=== PATIENT | male | born 1945 | race Caucasian/White ===

== ENCOUNTER 2020-10-15 14:39 | Inpatient (IN) ==
[2020-10-15 15:35] LABS: Basophils % 0.4 %; Eosinophils % 0.1 %; Hemoglobin 15.3 g/dL (12.9-16.9); Immature Granulocytes % 1.2 % (0-4); Lymphocytes # 1.3 K/mcL (0.6-4.6); Lymphocytes % 11.6 %; Mean Corpuscular HGB Conc 33.3 g/dL (31.6-35.5); Mean Corpuscular Hemoglobin 30.6 pg (28.0-33.3); Monocytes # 0.9 K/mcL (0.0-1.3); Monocytes % 7.7 %; Neutrophils # 8.7 K/mcL (1.6-8.9); Platelet Count 280 K/mcL (140-400)
[2020-10-15 15:39] LABS: INR 1.2; Prothrombin Time 14.1 Seconds (9.4-12.1)
[2020-10-15 15:41] LABS: Activated Partial Thrombo Time 26.6 Seconds (26.0-36.0)
[2020-10-15 15:47] LABS: Bilirubin,Direct 0.4 mg/dL (0.0-0.2); Bilirubin,Indirect 0.5 mg/dL (0.0-1.0); Bilirubin,Total 0.9 mg/dL (0.3-1.0); Calcium 9.4 mg/dL (8.6-10.3); Magnesium 1.8 mg/dL (1.6-2.6); Phosphorous 2.5 mg/dL (2.7-4.5); Potassium 4.6 mEq/L (3.5-5.1); Troponin I 0.03 ng/mL (< 0.04)
[2020-10-15] MEDS ORDERED: 0.9 % Sodium Chloride 1,000 ML IVC ONE (15:50)
[2020-10-15] MEDS ORDERED: Azithromycin 500 MG in 0.9 % Sodium Chloride 250 ML IVPB ONE (15:51)
[2020-10-15] MEDS ORDERED: CefTRIAXone 1,000 MG VIAL IM ONE (15:51)
[2020-10-15 16:14] LABS: Reactive Lymphocytes Present (Not Present); Smudge Cells Present (Not Present)
[2020-10-15 17:07] LABS: Adenovirus Not Detected (Not Detect); Coronavirus 229E Not Detected (Not Detect); Coronavirus HKU1 Not Detected (Not Detect); Coronavirus NL63 Not Detected (Not Detect); Coronavirus OC43 Not Detected (Not Detect)
[2020-10-15 17:08] LABS: Bordetella Pertussis Not Detected (Not Detect); Chlamydophila pneumoniae Not Detected (Not Detect); Human Metapneumovirus Not Detected (Not Detect); Human Rhinovirus/Enterovirus Not Detected (Not Detect); Influenza A Subtype 2009 H1 Not Detected (Not Detect); Influenza B Not Detected (Not Detect); Mycoplasma pneumoniae Not Detected (Not Detect); Parainfluenza Virus 1 Not Detected (Not Detect); Parainfluenza Virus 2 Not Detected (Not Detect); Parainfluenza Virus 3 Not Detected (Not Detect); Parainfluenza Virus 4 Not Detected (Not Detect); Respiratory Syncytial Virus Not Detected (Not Detect); SARS-CoV-2 DETECTED (Not Detect)
[2020-10-15] MEDS ORDERED: *HR* LORazepam 0.5 MG TABLET PO ONE (17:14)
[2020-10-15 17:56] LABS: ABG Base Excess -5 mEq/L (-2 to 3); ABG HCO3 17 mEq/L (21-27); ABG Oxygen Saturation 94 % (95-98); ABG PCO2 26 mmHg (35-45); ABG PH 7.44 pH Units (7.32-7.45); ABG PO2 67 mmHg (85-104); ABG TCO2 18 mEq/L (20-26)
[2020-10-15] MEDS ORDERED: Ondansetron ODT 4 MG TAB.RAPDIS SL PRN (19:29)
[2020-10-15] MEDS ORDERED: Naloxone 0.4 MG/ML INJ IVP PRN (19:29)
[2020-10-15] MEDS ORDERED: D5% in Water 1,000 ML IVC PRN (19:33)
[2020-10-15] MEDS ORDERED: *HR* Dextrose 50 % in Water (Vial) 50 ML VIAL IVP PRN (19:33)
[2020-10-15] MEDS ORDERED: Dextrose Gel 15 GM/37.5 ML TUBE PO PRN ×2 (19:33)
[2020-10-15] MEDS: Insulin LISPRO 300 UNITS/3 ML VIAL SUBQ SCH ×2 (21:26→22:02)
[2020-10-15 23:49] LABS: Bilirubin,Urine Negative (Negative); Blood,Urine Large (Negative); Clarity,Urine Clear (Clear); Color,Urine Yellow (Yellow); Glucose,Urine (UA) Normal (Normal); Ketones,Urine Negative (Negative); Leukocyte Esterase,Urine Negative (Negative); Mucus,Urine Few per lpf (None-Few); Nitrite,Urine Negative (Negative); Protein,Urine 100 mg/dL (Neg-Trace); Specific Gravity,Urine 1.022 (1.010-1.025); Urobilinogen,Urine Normal (Normal); WBC,Urine 0-3 per hpf (0-3)
[2020-10-16] MEDS: Acetaminophen 325 MG TABLET PO PRN ×2 (02:51→11:37)
[2020-10-16] MEDS ORDERED: *HR* Metoprolol 5 MG/5 ML VIAL IVP PRN (04:47)
[2020-10-16 06:05] LABS: Basophils % 0.5 %; Hematocrit 41.4 % (37.5-50.1); Immature Granulocytes % 1.2 % (0-4); Lymphocytes # 0.6 K/mcL (0.6-4.6); Lymphocytes % 7.6 %; Mean Corpuscular HGB Conc 32.9 g/dL (31.6-35.5); Mean Corpuscular Hemoglobin 30.4 pg (28.0-33.3); Mean Corpuscular Volume 92.6 fL (83.0-100.0); Monocytes # 0.3 K/mcL (0.0-1.3); Monocytes % 3.7 %; Platelet Count 234 K/mcL (140-400); Red Blood Count 4.47 M/mcL (4.19-5.50); Red Cell Distribution Width 13.9 % (11.5-14.5); White Blood Count 7.5 K/mcL (4.3-11.1)
[2020-10-16 06:11] LABS: Hemoglobin 13.6 g/dL (12.9-16.9); Neutrophils # 6.5 K/mcL (1.6-8.9)
[2020-10-16 06:12] LABS: INR 1.3; Prothrombin Time 14.7 Seconds (9.4-12.1)
[2020-10-16] MEDS ORDERED: *HR* Heparin 5,000 UNIT/ML VIAL IVP PRN ×2 (06:31)
[2020-10-16] MEDS ORDERED: *HR* Heparin 5,000 UNIT/ML VIAL IVP ONE (06:31)
[2020-10-16 06:37] LABS: Platelet Estimate Normal (Normal); Reactive Lymphocytes Present (Not Present)
[2020-10-16 06:47] LABS: Albumin 3.6 g/dL (3.5-5.7); Albumin/Globulin Ratio 1.1 (1.1-2.2); Bilirubin,Total 0.7 mg/dL (0.3-1.0); Calcium 8.8 mg/dL (8.6-10.3); Globulin 3.4 g/dL (2.4-3.5); Magnesium 1.8 mg/dL (1.6-2.6); Phosphorous 3.5 mg/dL (2.7-4.5); Potassium 4.6 mEq/L (3.5-5.1); Thyroid Stimulating Hormone 0.438 mcIU/mL (0.340-5.600)
[2020-10-16 07:18] LABS: Hemoglobin 14.6 g/dL (12.9-16.9); Mean Corpuscular Hemoglobin 31.3 pg (28.0-33.3); Mean Corpuscular Volume 92.3 fL (83.0-100.0); Mean Platelet Volume 9.8 fL (9.4-12.4); Platelet Count 233 K/mcL (140-400); Red Blood Count 4.66 M/mcL (4.19-5.50); Red Cell Distribution Width 14.1 % (11.5-14.5); White Blood Count 7.1 K/mcL (4.3-11.1)
[2020-10-16 07:30] LABS: Heparin anti-factor XA UFH < 0.04 IU/mL (0.30-0.70)
[2020-10-16 07:31] LABS: INR 1.2; Prothrombin Time 13.9 Seconds (9.4-12.1)
[2020-10-16] MEDS: Insulin LISPRO 300 UNITS/3 ML VIAL SUBQ SCH ×3 (07:58→16:59)
[2020-10-16] MEDS: Heparin 25,000UNIT/250ML 1/2NS 25,000 UNIT/250 ML IV.SOLN IVC SCH (08:04)
[2020-10-16] MEDS: cefTRIAXone 1,000 MG in Water for inj. (sterile) 10 ML IVP SCH (08:10)
[2020-10-16] MEDS: Saline Nasal Spray 44 ML BOTTLE NS SCH ×4 (08:43→20:20)
[2020-10-16] MEDS: Furosemide 40 MG/4 ML VIAL IVP SCH (08:47)
[2020-10-16] MEDS: Artificial Tears SOLN 15 ML BOTTLE BOTH EYES SCH ×2 (08:47→20:19)
[2020-10-16] MEDS: Multivit/Ca/Min/Fe/FA 1 TAB TABLET PO SCH (08:47)
[2020-10-16] MEDS: Chlorhexidine Rinse 15 ML MOUTHWASH MM SCH ×2 (08:47→20:20)
[2020-10-16] MEDS ORDERED: Dexamethasone Sodium Phos/PF 10 MG/ML VIAL IVP ONE (09:00)
[2020-10-16 09:04] LABS: D-Dimer 891 ng/mLFEU (0-500)
[2020-10-16] MEDS: Ipratropium 1 PUFF INHALER IH SCH ×4 (11:43→23:35)
[2020-10-16] MEDS ORDERED: traZODone 50 MG TABLET PO PRN (12:41)
[2020-10-16] MEDS ORDERED: *HR* LORazepam 0.5 MG TABLET PO PRN (12:41)
[2020-10-16] MEDS: Gabapentin 100 MG CAPSULE PO SCH ×2 (14:05→20:19)
[2020-10-16] MEDS ORDERED: Remdesivir 200 MG in 0.9 % Sodium Chloride 100 ML IVPB ONE (15:00)
[2020-10-16] MEDS: Azithromycin 500 MG in 0.9 % Sodium Chloride 250 ML IVPB SCH (16:41)
[2020-10-16] MEDS ORDERED: Vancomycin 2,000 MG/520 ML IV.SOLN IVPB ONE (19:13)
[2020-10-16] MEDS ORDERED: Insulin DETEMIR 100 UNIT/ML X5UNITS SUBQ SCH (21:00)
[2020-10-17 00:33] LABS: Basophils # 0.1 K/mcL (0.0-0.2); Basophils % 0.5 %; Hematocrit 44.3 % (37.5-50.1); Hemoglobin 14.8 g/dL (12.9-16.9); Immature Granulocytes % 1.3 % (0-4); Lymphocytes # 1.2 K/mcL (0.6-4.6); Lymphocytes % 9.2 %; Mean Corpuscular HGB Conc 33.4 g/dL (31.6-35.5); Mean Corpuscular Hemoglobin 30.5 pg (28.0-33.3); Mean Corpuscular Volume 91.3 fL (83.0-100.0); Mean Platelet Volume 10.1 fL (9.4-12.4); Monocytes # 0.7 K/mcL (0.0-1.3); Monocytes % 5.1 %; Neutrophils # 10.8 K/mcL (1.6-8.9); Platelet Count 321 K/mcL (140-400); Red Blood Count 4.85 M/mcL (4.19-5.50); Segmented Neutrophils % 83.9 %
[2020-10-17 00:34] LABS: White Blood Count 12.9 K/mcL (4.3-11.1)
[2020-10-17 00:39] LABS: INR 1.2; Prothrombin Time 14.3 Seconds (9.4-12.1)
[2020-10-17 00:51] LABS: Platelet Estimate Normal (Normal); Reactive Lymphocytes Present (Not Present)
[2020-10-17] MEDS: Saline Nasal Spray 44 ML BOTTLE NS SCH ×6 (00:51→16:54)
[2020-10-17 00:53] LABS: Albumin 3.6 g/dL (3.5-5.7); Albumin/Globulin Ratio 0.9 (1.1-2.2); Bilirubin,Total 0.6 mg/dL (0.3-1.0); Calcium 9.1 mg/dL (8.6-10.3); Globulin 3.8 g/dL (2.4-3.5); Potassium 4.4 mEq/L (3.5-5.1); Total Protein 7.4 g/dL (6.4-8.9)
[2020-10-17 00:55] LABS: Magnesium 2.2 mg/dL (1.6-2.6); Phosphorous 3.3 mg/dL (2.7-4.5)
[2020-10-17] MEDS: Pantoprazole 40 MG VIAL IVP SCH ×3 (01:01→08:15)
[2020-10-17] MEDS ORDERED: Haloperidol Lactate 5 MG/ML VIAL IVP ONE (03:20)
[2020-10-17] MEDS: Ipratropium 1 PUFF INHALER IH SCH ×4 (03:45→15:30)
[2020-10-17] MEDS ORDERED: *HR* LORazepam 2 MG/ML VIAL IVP ONE (04:29)
[2020-10-17] MEDS: Insulin LISPRO 300 UNITS/3 ML VIAL SUBQ SCH ×3 (05:14→13:58)
[2020-10-17] MEDS: Gabapentin 100 MG CAPSULE PO SCH ×2 (07:32→08:15)
[2020-10-17] MEDS: Multivit/Ca/Min/Fe/FA 1 TAB TABLET PO SCH ×2 (07:32→08:15)
[2020-10-17] MEDS: Cholecalciferol (D-3) 1,000 UNIT (25MCG) TABLET PO SCH ×2 (07:32→08:15)
[2020-10-17] MEDS: Chlorhexidine Rinse 15 ML MOUTHWASH MM SCH ×3 (07:32→22:00)
[2020-10-17] MEDS: Aspirin Enteric Coated 81 MG Tablet PO SCH ×2 (07:32→08:14)
[2020-10-17] MEDS: allopurinoL 300 MG TABLET PO SCH ×2 (07:33→08:15)
[2020-10-17] MEDS: Heparin 25,000UNIT/250ML 1/2NS 25,000 UNIT/250 ML IV.SOLN IVC SCH (07:36)
[2020-10-17] MEDS: Artificial Tears SOLN 15 ML BOTTLE BOTH EYES SCH ×3 (07:37→22:00)
[2020-10-17] MEDS: Colchicine 0.6 MG TABLET PO SCH ×2 (07:38→08:15)
[2020-10-17] MEDS: Dexamethasone Sodium Phos/PF 10 MG/ML VIAL IVP SCH ×2 (07:38→08:15)
[2020-10-17] MEDS: cefTRIAXone 1,000 MG in Water for inj. (sterile) 10 ML IVP SCH ×2 (07:41→08:15)
[2020-10-17] MEDS: Furosemide 40 MG/4 ML VIAL IVP SCH ×2 (07:41→08:15)
[2020-10-17 07:44] LABS: Estimated Average Glucose 226 mg/dl; Hemoglobin A1C 9.5 %
[2020-10-17] MEDS ORDERED: Insulin LISPRO 300 UNITS/3 ML VIAL SUBQ SCH ×3 (08:00→12:00)
[2020-10-17] MEDS ORDERED: Vancomycin 1,500 MG/265 ML IV.SOLN IVPB SCH (08:00)
[2020-10-17] MEDS ORDERED: Haloperidol Lactate 5 MG/ML VIAL IM ONE (09:00)
[2020-10-17] MEDS ORDERED: QUEtiapine Fumarate 25 MG TABLET PO SCH (09:00)
[2020-10-17] MEDS ORDERED: Insulin DETEMIR 100 UNIT/ML X5UNITS SUBQ SCH (09:00)
[2020-10-17] MEDS ORDERED: *HR* LORazepam 2 MG/ML VIAL IVP STA (09:14)
[2020-10-17] MEDS ORDERED: *HR* LORazepam 2 MG/ML VIAL ONE (09:21)
[2020-10-17] MEDS: Dexmedetomidine HCl 400 MCG/100 ML MLS IVC SCH ×2 (11:00→16:55)
[2020-10-17 12:07] LABS: ABG Base Excess -7 mEq/L (-2 to 3); ABG HCO3 16 mEq/L (21-27); ABG Oxygen Saturation 80 % (95-98); ABG PCO2 24 mmHg (35-45); ABG PH 7.42 pH Units (7.32-7.45); ABG PO2 42 mmHg (85-104); ABG TCO2 17 mEq/L (20-26)
[2020-10-17] MEDS ORDERED: Remdesivir 100 MG in 0.9 % Sodium Chloride 100 ML IVPB SCH (15:00)
[2020-10-17] MEDS: Azithromycin 500 MG in 0.9 % Sodium Chloride 250 ML IVPB SCH (16:55)
[2020-10-17] MEDS: *HR* FentaNYL (PF) 100 MCG/2 ML VIAL IVP PRN (23:19)
[2020-10-17] MEDS: Haloperidol Lactate 5 MG/ML VIAL IVP PRN (23:20)
[2020-10-18] MEDS: Saline Nasal Spray 44 ML BOTTLE NS SCH ×3 (02:25→11:42)
[2020-10-18] MEDS: Haloperidol Lactate 5 MG/ML VIAL IVP PRN ×2 (03:20→06:48)
[2020-10-18] MEDS: *HR* FentaNYL (PF) 100 MCG/2 ML VIAL IVP PRN ×3 (03:21→09:22)
[2020-10-18] MEDS: *HR* LORazepam 2 MG/ML VIAL IVP PRN ×2 (04:13→09:22)
[2020-10-18 07:02] LABS: INR 1.3; Prothrombin Time 15.2 Seconds (9.4-12.1)
[2020-10-18 07:12] LABS: Hematocrit 43.6 % (37.5-50.1); Hemoglobin 14.9 g/dL (12.9-16.9); Mean Corpuscular HGB Conc 34.2 g/dL (31.6-35.5); Mean Corpuscular Hemoglobin 31.4 pg (28.0-33.3); Mean Platelet Volume 10.4 fL (9.4-12.4); Platelet Count 346 K/mcL (140-400); Red Blood Count 4.74 M/mcL (4.19-5.50); Red Cell Distribution Width 14.2 % (11.5-14.5); White Blood Count 13.8 K/mcL (4.3-11.1)
[2020-10-18 08:08] LABS: Calcium 9.2 mg/dL (8.6-10.3); Potassium 4.2 mEq/L (3.5-5.1)
[2020-10-18 08:09] LABS: Albumin 3.7 g/dL (3.5-5.7)
[2020-10-18 08:38] LABS: Lymphocytes # 0.3 K/mcL (0.6-4.6); Monocytes # 0.3 K/mcL (0.0-1.3)
[2020-10-18 08:39] LABS: Platelet Estimate Normal (Normal)
[2020-10-18 09:22] LABS: Albumin/Globulin Ratio 0.9 (1.1-2.2); Bilirubin,Total 0.8 mg/dL (0.3-1.0); Magnesium 2.4 mg/dL (1.6-2.6); Phosphorous 4.8 mg/dL (2.7-4.5); Total Protein 7.7 g/dL (6.4-8.9)
[2020-10-18] MEDS ORDERED: *HR* FentaNYL (PF) 100 MCG/2 ML VIAL IVP ONE ×2 (09:49→10:30)
[2020-10-18] MEDS ORDERED: Haloperidol Lactate 5 MG/ML VIAL IVP ONE (09:50)
[2020-10-18] MEDS ORDERED: *HR* FentaNYL (PF) 100 MCG/2 ML VIAL IVP PRN (09:53)
[2020-10-18] MEDS ORDERED: FentaNYL (PF) 1,000 MCG/100 ML IV.SOLN IVC SCH (11:00)
[2020-10-18] MEDS: Furosemide 40 MG/4 ML VIAL IVP SCH (11:07)
[2020-10-18] MEDS: Chlorhexidine Rinse 15 ML MOUTHWASH MM SCH (11:07)
[2020-10-18] MEDS: Pantoprazole 40 MG VIAL IVP SCH (11:07)
[2020-10-18] MEDS: Artificial Tears SOLN 15 ML BOTTLE BOTH EYES SCH (11:07)
[2020-10-18] MEDS: Dexamethasone Sodium Phos/PF 10 MG/ML VIAL IVP SCH (11:07)
[2020-10-18] MEDS: Colchicine 0.6 MG TABLET PO SCH (11:07)
[2020-10-18] MEDS: cefTRIAXone 1,000 MG in Water for inj. (sterile) 10 ML IVP SCH (11:08)
[2020-10-18] MEDS: Cholecalciferol (D-3) 1,000 UNIT (25MCG) TABLET PO SCH (11:08)
[2020-10-18] MEDS: Haloperidol Lactate 5 MG/ML VIAL IVP SCH ×3 (12:23→19:55)
[2020-10-18] MEDS: Dexmedetomidine HCl 400 MCG/100 ML MLS IVC SCH ×2 (13:19→19:57)
== END 2020-10-18 21:20 | disposition expired | DRG 871 ==
LOC: 2NENU 14:39 → EMEROOARM 14:39 → SUATTDRO 19:27 → 2NENU 21:07
PROVIDERS: ADMIT Family Medicine; ATTEND Internal Medicine